=== PATIENT | female | born 2000 | race Caucasian/White ===

== ENCOUNTER 2022-07-16 14:18 | Outpatient (RCR) | payer OTHER, MEDICAID, SELFPAY ==
[2022-07-16] MEDS: RHO(D) IMMUNE GLOBULIN 300 MCG/2 ML SYRINGE IM (14:37)
== END 2022-10-14 23:59 | disposition home or self-care (01) ==
LOC: ANHLAB 14:18
PROVIDERS: PCP Family Medicine Adolescent Medicine; Visit Provider Obstetrics & Gynecology
DX: Z29.13 Encounter for prophylactic Rho(D) immune globulin (principal); O36.0190 Maternal care for anti-D [Rh] antibodies, unspecified trimester, not applicable or unspecified; Z3A.00 Weeks of gestation of pregnancy not specified
CPT/HCPCS: 36415; 85461; 86850; 86900; 86901; 90384; 96372; J2790

== ENCOUNTER 2022-08-21 09:07 | Observation (INO) | payer OTHER, MEDICAID, SELFPAY ==
--- NOTE | 2022-08-21 09:07 | OBADM ---
This patient, Selam Wheatley, admitted to the OB room OB Post 115 for observation. Patient/family oriented to hospital policies and general routines including ID bracelet, bed and alarms, visiting hours, pain management, procedures, bathroom and other care routines, personal items, smoking policy, room service/diet, and visiting hours. Patient/Family are encouraged to report perceived risks to care and to ask questions if they do not understand what they are told or what they should do.
[2022-08-21 09:30] VITALS: BMI 30.2
[2022-08-21 09:31] VITALS: BP 119/66; PULSE 92
--- NOTE | 2022-08-21 12:40 | PC.NURSE ---
Addendum entered by Kasey Garcia RN 08/21/22 13:35: Note from 1015, not 1240. Original Note: Called Dr. Zeng with pt status. Pt states that she fell today at work, hitting her belly on the mop bucket. She complains of sharp pain 2 times since admission lasting about 5sec. Reactive tracing with no contractions. Pt denies feeling contractions or cramping. Blood type is O negative. Orders received and documented.
--- NOTE | 2022-08-22 21:26 | PM.OBTRLD ---
OB - Triage/Final Diagnosis Visit Information Comments/Additional reasons for admission: I have assessed the risk for this patient, Selam Wheatley, and determined that she would benefit from observation care. Evaluation Laboratory results: Laboratory Tests 08/21/22 10:13 KB Hemoglobin Negative Final Diagnosis (1) Fall: Code(s): W19.XXXA - Unspecified fall, initial encounter Status: Acute
== END 2022-08-21 12:40 | disposition home or self-care (01) ==
PROVIDERS: Admitting Provider Obstetrics & Gynecology; PCP Family Medicine Adolescent Medicine; Visit Provider Obstetrics & Gynecology
DX: Z04.3 Encounter for examination and observation following other accident (principal); Z3A.32 32 weeks gestation of pregnancy
CPT/HCPCS: 36415; 59025; 85460; G0378; G0379

== ENCOUNTER 2022-09-28 09:46 | Inpatient (IN) | payer OTHER, MEDICAID, SELFPAY ==
[2022-09-28] VITALS (105 sets, daily range): BP systolic 95–137; BP diastolic 47–111; PULSE 64–170; RESP 16–18; TEMP 36.3–36.7; O2SAT 95–100; BMI 32.6
--- NOTE | 2022-09-28 10:31 | LDADM ---
This patient, Selam Wheatley, was admitted to Labor/Delivery/Recovery 104 on 09/28/22 at 09:46. Plans for labor, pain management and were discussed with patient. Patient/family oriented to hospital policies and general routines including ID bracelet, bed and alarms, visiting hours, pain management, procedures, bathroom and other care routines, personal items, smoking policy, room service/diet and guest tray routines, security routines, and visiting hours. Patient/Family are encouraged to report perceived risks to care and to ask questions if they do not understand what they are told or what they should do. See OBIX for further documentation.
[2022-09-28 10:50] LABS: Basophils Percent Auto 0.1 % (0.2-1.2); Eosinophils Absolute Auto 0.1 K/mm3 (0-0.3); Eosinophils Percent Auto 0.9 % (0-4.4); Hemoglobin 12.1 g/dL (12.0-15.0); Immature Granulocyte Absolute 0.03 K/mm3 (0.00-0.031); Immature Granulocyte Percent A 0.3 % (0-0.5); Lymphocytes Absolute Auto 2.35 K/mm3 (0.9-3.2); Lymphocytes Percent Auto 24.2 % (18.3-44.2); Mean Corpuscular HGB Conc 34.6 g/dl (32-36); Mean Corpuscular Hemoglobin 32.2 pg (26-34); Mean Corpuscular Volume 93.1 fl (80-100); Mean Platelet Volume 11.1 fl (7.4-10.4); Monocytes Absolute Auto 0.8 K/mm3 (0.1-0.6); Neutrophils Absolute Auto 6.5 K/mm3 (1.3-6.7); Neutrophils Percent Auto 66.5 % (45.5-73.1); Platelet Count Result 272 k/mm3 (150-375); Red Blood Count 3.76 M/mm3 (4.2-5.4); Red Cell Distribution Width 12.5 % (11.5-14.5); White Blood Count 9.7 K/mm3 (4.5-10.0)
[2022-09-28] MEDS: LACTATED RINGERS 1,000 ML 125 ML IV CONT ×2 (11:05→13:59)
[2022-09-28] MEDS: OXYTOCIN 30 UNITS/NS 500 ML 30 UNITS/500 ML BAG 6 UNITS IV CONT (11:05)
--- NOTE | 2022-09-28 11:33 | PM.IMHP ---
H&P: HPI History of Present Illness Date/Time: 09/28/22 11:33 Chief Complaint: induction of labor Narrative: Selam is a 21yo G1 at 38.2 who has IUGR and was found to have GOLDY of 4 in the office today. All other testing normal, incluiding normal umbilical dopplers today. otherwise uncomplicated. Review of Systems Review of Systems: All systems reviewed & are unremarkable except as noted in HPI and below PMFSH Surgical History Surgical History Hx of tonsillectomy Family History Family History Grandparent Depression Mother Depression Heart disease Hypertension Alcoholism Father Alcoholism Sibling Alcoholism Social History Social History Smoking status: Current every day smoker Tobacco type: e-cigarettes/vaping Second hand tobacco smoke exposure: No Alcohol intake: current Alcohol use details: Sometimes on weekends Substance use: never Substance use type: does not use Lack of Transportation: No Lack of Food: Never True Current Housing: I Have Housing Concerned About Future Housing: No Difficulty Paying Gas/Electric Bills: No Difficulty Paying for Meds: No Currently Unemployed: No Education: High School Diploma/GED Difficulty w/ Childcare or Family Care: No Living arrangements: with family Occupation/Education: occupation Gender identity (if verbalized by the patient): Female Sexual Orientation (if Verbalized by the Patient): Straight or Heterosexual Spiritual care concerns: No Agree to blood products: Yes Meds Home Medications and Allergies Home Medications Medication Instructions Recorded Confirmed Type prenat.vits,jessica,[id number] 1 tablet PO HS 09/19/22 09/19/22 History Allergies Allergy/AdvReac Type Severity Reaction Status Date / Time gluten Allergy Severe Vomitting/d Verified 09/28/22 10:37 iahrrea Vital Signs Vital Signs - 24 hr 09/28/22 10:18 09/28/22 10:31 09/28/22 10:46 Pulse Rate 90 87 98 Blood Pressure 125/76 116/48 L 134/111 H Oxygen Delivery 09/28/22 11:16 09/28/22 11:31 09/28/22 10:30 Pulse Rate 77 71 Blood Pressure 126/74 131/80 Oxygen Delivery Room Air Exam Const: General: no acute distress Resp: Effort & Inspection: normal respiratory effort Auscultation: clear to auscultation bilaterally Cardio: Rate: regular rate Rhythm: regular rhythm GI: GI Palp: Yes Soft to palpation Extrem: General: normal to inspection H&P: Results Labs Labs: Short CBC 09/28/22 Range/Units 10:08 WBC 9.7 (4.5-10.0) K/mm3 Hgb 12.1 (12.0-15.0) g/dL Hct 35.0 L (37.0-47.0) % Plt Count 272 (150-375) k/mm3 Assessment and Plan Assessment and plan (1) IUGR (intrauterine growth restriction): Status: Acute (2) Oligohydramnios in [place] in third trimester: Code(s): O41.03X0 - Oligohydramnios, third trimester, not applicable or unspecified Status: Acute Plan FHt category 1 GBS neg AROM clear /-2 pitocin per protocol
--- NOTE | 2022-09-28 14:07 | WPDANESEPPF ---
Anes - Initial Pre Proc Eval Procedure: labor epidural Date/Time: 09/28/22 14:07 Surgeon: Kasey Rocha MD Pre Op Diagnosis: labor pain Pre Op Diagnosis: Induction of Labor Patient Data Age: 21 Gender: F Height: 1.57 m Weight: 81 kg Last Vital Signs Temp 36.6 C 09/28/22 11:30 Pulse 70 09/28/22 14:04 BP 106/75 09/28/22 14:04 Pulse Ox 96 09/28/22 14:03 O2 Del Method Room Air 09/28/22 10:30 Allergies Allergy/AdvReac Type Severity Reaction Status Date / Time gluten Allergy Severe Vomitting/d Verified 09/28/22 10:37 iahrrea Home Medications Medication Instructions Recorded Confirmed Type prenat.vits,jessica,[id number] 1 tablet PO HS 09/19/22 09/19/22 History Laboratory Tests 09/28/22 10:08 WBC 9.7 K/mm3 (4.5-10.0) RBC 3.76 L M/mm3 (4.2-5.4) Hgb 12.1 g/dL (12.0-15.0) Hct 35.0 L % (37.0-47.0) MCV 93.1 fl (80-100) MCH 32.2 pg (26-34) MCHC 34.6 g/dl (32-36) RDW 12.5 % (11.5-14.5) Plt Count 272 k/mm3 (150-375) MPV 11.1 H fl (7.4-10.4) Immature Gran % (Auto) 0.3 % (0-0.5) Neut % (Auto) 66.5 % (45.5-73.1) Lymph % (Auto) 24.2 % (18.3-44.2) [place] % (Auto) 8.0 % (2.6-8.5) Eos % (Auto) 0.9 % (0-4.4) Baso % (Auto) 0.1 L % (0.2-1.2) Lymph # (Auto) 2.35 K/mm3 (0.9-3.2) [place] # (Auto) 0.8 H K/mm3 (0.1-0.6) Eos # (Auto) 0.1 K/mm3 (0-0.3) Baso # (Auto) 0.0 K/mm3 (0.0-0.1) Abs Immat Gran (auto) 0.03 K/mm3 (0.00-0.031) Absolute Neuts (auto) 6.5 K/mm3 (1.3-6.7) Absolute Nucleated RBC 0.0 K/mm3 (0.0-0.012) Nucleated RBC % 0.0 % (0.0-0.2) RPR Pending Blood Type O Negative Antibody Screen Positive Antibody Identification Passive Due to RH Imm Glob Antigen Identification Cancelled DEJON, IgG Interpret Not Performed DEJON, Poly Interpret Negative DEJON, Complement Interp Not Performed Patient hx anesthesia problems: none Family hx anesthesia problems: none Results Review: All pre-operative results and documents have been reviewed as part of the pre-operative evaluation. [facility] Surgical History Surgical History Hx of tonsillectomy Family History Family History Grandparent Depression Mother Depression Heart disease Hypertension Alcoholism Father Alcoholism Sibling Alcoholism Social History Social History Smoking status: Current every day smoker Tobacco type: e-cigarettes/vaping Second hand tobacco smoke exposure: No Alcohol intake: current Alcohol use details: Sometimes on weekends Substance use: never Substance use type: does not use Lack of Transportation: No Lack of Food: Never True Current Housing: I Have Housing Concerned About Future Housing: No Difficulty Paying Gas/Electric Bills: No Difficulty Paying for Meds: No Currently Unemployed: No Education: High School Diploma/GED Difficulty w/ Childcare or Family Care: No Living arrangements: with family Occupation/Education: occupation Gender identity (if verbalized by the patient): Female Sexual Orientation (if Verbalized by the Patient): Straight or Heterosexual Spiritual care concerns: No Agree to blood products: Yes Anes - Eval Final PreProcedure Day of Procedure 09/28/22 14:07 Patient weight: obese ASA classification: II Anesthetic plan: proceed Anesthesia type and monitoring: regional epidural and standard monitoring Results Review: All pre-operative results and documents have been reviewed as part of the pre-operative evaluation. Informed Consent: The patient's anesthetic plan and its attendant risks and benefits were discussed with the patient/family/POA. Questions were solicited and answers provided to the
--- NOTE | 2022-09-28 19:25 | PM.OBPRVD ---
OB - Delivery Note Procedure Delivery date: 09/28/22 Procedure: Events: Intrauterine Growth Restriction (IUGR) and Oligohydramnios Induction method: AROM and Per Pitocin Protocol Delivery monitor: External FHT and Internal Uterine Route of delivery: Laceration Description: Perineal - 2nd Degree Delivery repair: vicryl Specimen: Yes Quantitative Blood Loss (ml): 320 Anesthesia type: Epidural Disposition: Floor Narrative: With adequate expulsive efforts by the mother, the baby's head was delivered OA. The baby's anterior shoulder was delivered under the pubic symphysis without difficulty. The posterior shoulder and the rest of the baby delivered without difficulty. The infant was placed on the mothers chest and suctioned and stimulated. The cord was clamped and cut after 30 seconds. Mother and baby both stable. Baby Date of : 09/28/22 Time of : 19:01 Weeks of gestation at delivery: 38 gender: Female Weight (pounds): 5 Weight (ounces): 12 presentation: vertex Placenta delivery description: Spontaneous Cord Vessel Description: 3 Vessels and Delayed Cord Clamping score one minute: 9 score five minutes: 9
[2022-09-28] MEDS: OXYTOCIN 30 UNITS/NS 500 ML 30 UNITS/500 ML BAG 125 UNITS IV CONT (19:37)
[2022-09-28] MEDS: IBUPROFEN 600 MG TABLET PO (20:10)
[2022-09-28] MEDS: WITCH HAZEL 40 PADS 1 PAD TOPICAL (20:11)
[2022-09-28] MEDS: BENZOCAINE 20% AER SPR (*SP) 56 GM CAN 1 SPRAY TOPICAL (20:11)
--- NOTE | 2022-09-28 22:02 | OBPPTRN ---
Patient transferred to post room #286 via W/C. Support person present. Oriented to unit, room, information board, rooming in, admission packet and security measures. Patient verbalizes understanding.
[2022-09-29] MEDS: IBUPROFEN 600 MG TABLET PO ×3 (02:42→23:50)
[2022-09-29 04:20] VITALS: BP 119/86; PULSE 76; RESP 16; TEMP 36.7
[2022-09-29] MEDS: ACETAMINOPHEN 325 MG TABLET 650 MG PO ×2 (04:32→14:57)
[2022-09-29 05:12] LABS: Hematocrit 34.2 % (37.0-47.0); Hemoglobin 11.5 g/dL (12.0-15.0)
[2022-09-29 07:03] VITALS: BP 119/74; PULSE 73; RESP 14; TEMP 36.1; O2SAT 99
[2022-09-29] MEDS: MULTIVIT/MIN/PREN/FOL AC/IRON TABLET 1 TAB PO (09:58)
--- NOTE | 2022-09-29 11:13 | WPDANLDPN2 ---
Anes-Prog Note L&D Date/Time: 09/29/22 11:13 Comfortable throughout: labor and delivery Neuraxial method: epidural Epidural/Spinal procedure site: clean & non-tender Neuro status: Neuro function grossly intact. Cardiovascular status: normal Respiratory status: normal Airway patency: baseline Mental status: baseline Post-Op hydration status: normal Vital Signs: Last Vital Signs Temp 36.1 C L 09/29/22 07:03 Pulse 73 09/29/22 07:03 Resp 14 09/29/22 07:03 BP 119/74 09/29/22 07:03 Pulse Ox 99 09/29/22 07:03 O2 Del Method Room Air 09/28/22 22:20 Pain score (VAS): 3 I/O: Intake & Output 09/28/22 09/29/22 09/29/22 23:59 07:59 15:59 Output Total 338 300 Balance -338 -300 Post-procedural complaints: none Patient feedback: Patient satisfied with anesthetic care.
[2022-09-29 11:40] VITALS: BP 108/61; PULSE 82; RESP 18; TEMP 36.4
[2022-09-29] MEDS: RHO(D) IMMUNE GLOBULIN 300 MCG/2 ML SYRINGE IM (11:43)
--- NOTE | 2022-09-29 16:07 | PM.GYNPNOP ---
CONCRETE BUILDINGS ASSEMBLER - A/P Time Spent With Patient Time: Total time spent is greater than 50% in coordination of care (as documented) at patient's floor/unit and/or counseling patient: Time with patient: less than 15 minutes CONCRETE BUILDINGS ASSEMBLER- PN:Brian Post-Op Subjective Date/time seen: 09/29/22 16:07 Exam Const: General: comfortable, no acute distress and alert Resp: Effort & Inspection: normal respiratory effort Auscultation: no crackles, no rales and no rhonchi Cardio: Rate: regular rate Heart sounds: no click, no murmurs and no rubs GI: Inspection: non-distended GI Palp: No Tenderness to palpation present (GI) Auscultation: normal bowel sounds Other: Incision - CDI Extrem: General: normal to inspection, no pedal edema and no calf tenderness CONCRETE BUILDINGS ASSEMBLER - PN: Obj Data Vital Signs Vital Signs: Vital Signs - 24 hr 09/28/22 16:11 09/28/22 16:16 09/28/22 16:21 Temperature Pulse Rate 68 Respiratory Rate Blood Pressure 111/74 Pulse Oximetry 98 97 98 Oxygen Delivery 09/28/22 16:26 09/28/22 16:31 09/28/22 16:36 Temperature Pulse Rate 76 Respiratory Rate Blood Pressure 115/76 Pulse Oximetry 97 98 98 Oxygen Delivery 09/28/22 16:41 09/28/22 16:23 09/28/22 16:46 Temperature 97.3 F L Pulse Rate 71 Respiratory Rate Blood Pressure 118/75 Pulse Oximetry 98 99 Oxygen Delivery 09/28/22 16:51 09/28/22 16:56 09/28/22 17:01 Temperature Pulse Rate 72 Respiratory Rate Blood Pressure 125/76 Pulse Oximetry 98 99 98 Oxygen Delivery 09/28/22 17:06 09/28/22 17:11 09/28/22 17:16 Temperature Pulse Rate 76 Respiratory Rate Blood Pressure 112/71 Pulse Oximetry 98 97 98 Oxygen Delivery 09/28/22 17:21 09/28/22 17:26 09/28/22 17:31 Temperature Pulse Rate Respiratory Rate Blood Pressure Pulse Oximetry 98 98 99 Oxygen Delivery 09/28/22 17:36 09/28/22 17:41 09/28/22 17:46 Temperature Pulse Rate 74 Respiratory Rate Blood Pressure 113/70 Pulse Oximetry 99 100 98 Oxygen Delivery 09/28/22 17:51 09/28/22 17:56 09/28/22 18:01 Temperature Pulse Rate 76 Respiratory Rate Blood Pressure 99/63 L Pulse Oximetry 99 99 99 Oxygen Delivery 09/28/22 18:06 09/28/22 18:11 09/28/22 18:16 Temperature Pulse Rate 74 Respiratory Rate Blood Pressure 107/62 Pulse Oximetry 100 99 99 Oxygen Delivery 09/28/22 18:21 09/28/22 18:26 09/28/22 18:31 Temperature Pulse Rate 74 Respiratory Rate Blood Pressure 104/64 Pulse Oximetry 98 98 98 Oxygen Delivery 09/28/22 18:36 09/28/22 18:41 09/28/22 18:46 Temperature Pulse Rate Respiratory Rate Blood Pressure Pulse Oximetry 98 99 99 Oxygen Delivery 09/28/22 18:51 09/28/22 18:56 09/28/22 19:01 Temperature Pulse Rate 170 H Respiratory Rate Blood Pressure 123/90 Pulse Oximetry 100 100 100 Oxygen Delivery 09/28/22 18:00 09/28/22 19:20 09/28/22 22:20 Temperature 97.7 F 97.6 F Pulse Rate Respiratory Rate 16 Blood Pressure Pulse Oximetry Oxygen Delivery Room Air 09/28/22 22:20 09/29/22 04:20 09/29/22 07:03 Temperature 98.1 F 98.1 F 97.0 F L Pulse Rate 67 76 73 Respiratory Rate 18 16 14 Blood Pressure 114/75 119/86 119/74 Pulse Oximetry 99 Oxygen Delivery 09/29/22 11:40 Temperature 97.6 F Pulse Rate 82 Respiratory Rate 18 Blood Pressure 108/61 Pulse Oximetry Oxygen Delivery Intake/Output Intake/Output: Intake & Output 09/26/22 09/27/22 09/28/22 09/29/22 23:59 23:59 23:59 23:59 Intake Total 1000 Output Total 338 300 Balance 662 -300 Meds/Results Medications: Active Medications Generic Name Dose Route Start Last Admin Trade Name Jillian PRN Reason Stop Dose Admin Acetaminophen 650 mg 09/28/22 19:29 09/29/22 14:57 Acetaminophen 325 Mg Tablet PO 650 mg Q6H PRN Administration Mild Pain (1-3) or Headache Benzocaine 1 spray 09/02
[2022-09-29 20:34] VITALS: BP 115/76; PULSE 82; RESP 18; TEMP 36.4
--- NOTE | 2022-09-30 09:00 | PM.OBPNVD ---
OB - PN: Subj Subjective Date/time seen: 09/30/22 09:00 doing well, baby feeding well, no complaints OB - PN: Obj Data Labs 09/29/22 04:25 Labs: Laboratory Results - last 24 hr 09/29/22 04:25 Blood Type O Negative Antibody Screen Positive Antibody Identification TNP Antigen Identification TNP DEJON, IgG Interpret Not Performed DEJON, Poly Interpret Negative DEJON, Complement Interp Not Performed Screen Negative Baby's Blood Type B pos Baby's DEJON Positive Doses of RhIg Required 1 OB - PN A/P Plan day: 2 Plan: routine care and discharge home Time Spent With Patient Time: Total time spent is greater than 50% in coordination of care (as documented) at patient's floor/unit and/or counseling patient: Review of Systems Review of Systems: All systems reviewed & are unremarkable except as noted in HPI and below Exam Const: General: cooperative and healthy appearing Chest: Chest palpation & inspection: normal inspection of the chest Resp: Effort & Inspection: normal respiratory effort and able to speak in complete sentences GI: Inspection: normal to inspection Skin: General skin exam: normal color Extrem: General: normal to inspection Psych: Appearance: grossly normal
--- NOTE | 2022-09-30 09:03 | PM.OBDSVD ---
DS: Admitting Diagnosis Discharge Date 09/30/22 Admitting Diagnosis IUGR, IOL DS: Discharge Diagnosis Discharge Diagnosis (1) Vaginal delivery: Code(s): O80 - Encounter for full-term uncomplicated delivery Status: Acute OB - DS: Summary OB Procedures : None OB Procedures Intrapartum: Spontaneous Vag Delivery OB Procedures: : None Time Spent with Patient Time attestation: Total time spent providing and/or coordinating discharge services: DS: Data Data Completed and Pending Pending studies at discharge: Pending at discharge 09/28/22 19:49 Surgical [PTH] Routine Labs on day of discharge: Labs from last 24 hours 09/29/22 04:25 Blood Type O Negative Antibody Screen Positive Antibody Identification TNP Antigen Identification TNP DEJON, IgG Interpret Not Performed DEJON, Poly Interpret Negative DEJON, Complement Interp Not Performed Screen Negative Baby's Blood Type B pos Baby's DEJON Positive Doses of RhIg Required 1 Discharge Plan Discharge Attending physician on discharge: Zachary Apple Discharging Clinician: Luz Valadez Patient Disposition: Home, Self-Care Activity: pelvic rest Diet: regular Patient Instructions: Antibiotic Form, How to Stop Smoking (DC) Stand Alone Forms: General Discharge Information Follow-up/Referrals: Kasey Rocha MD [Physician] - 4 Weeks Discharge Medications: New ibuprofen 600 mg Tablet 600 mg PO Q6H PRN (Reason: Cramping) Qty: 30 0RF Continued #2 Tablet 1 tablet PO HS Date of admission: 09/28/22 09:46 Primary Care Provider: Tex Crain Admitting Provider: Kasey Rocha Attending physician on admission: Kasey Rocha Condition: Stable
[2022-09-30 09:15] VITALS: BP 112/78; PULSE 88; RESP 16; TEMP 36.5
[2022-09-30] MEDS: MULTIVIT/MIN/PREN/FOL AC/IRON TABLET 1 TAB PO (09:23)
[2022-09-30] MEDS: IBUPROFEN 600 MG TABLET PO (09:23)
[2022-10-01 07:29] LABS: Rapid Plasma Reagin Non-Reactive (NonReactive)
[2022-10-02 07:51] VITALS: BP 123/79; PULSE 91; RESP 20; TEMP 36.6; O2SAT 99
== END 2022-09-30 13:30 | disposition home or self-care (01) | DRG 806 ==
LOC: ANHLDR 19:51 → ANHOB2 22:11
PROVIDERS: Admitting Provider Obstetrics & Gynecology; PCP Family Medicine Adolescent Medicine; Visit Provider Obstetrics & Gynecology
DX: O36.5930 Maternal care for other known or suspected poor fetal growth, third trimester, not applicable or unspecified (principal); O41.03X0 Oligohydramnios, third trimester, not applicable or unspecified; Z37.0 Single live birth; O99.334 Smoking (tobacco) complicating childbirth; F17.290 Nicotine dependence, other tobacco product, uncomplicated; O70.1 Second degree perineal laceration during delivery; Z3A.38 38 weeks gestation of pregnancy
CPT/HCPCS: 36415; 85014; 85018; 85025; 85461; 86592; 86850; 86880; 86900; 86901; 86902; 88307; 90384; A9270; J2590; J2790; J2795; J7120

== ENCOUNTER 2023-04-11 13:42 | Outpatient (CLI) | payer OTHER, MEDICAID, SELFPAY ==
--- NOTE | ~2023-04-11 | US_ITS ---
EXAMINATION: US axilla LT HISTORY: Probable lump in the left axilla TECHNIQUE: Targeted ultrasound of the left axilla was performed. FINDINGS: There is an approximately 10 mm x 8 mm hypoechoic mass with posterior acoustic enhancement and possible central fat component in the left axilla corresponding to the palpable abnormality of co ncern. No definite internal vascularity is identified. IMPRESSION: Possible reactive lymph node of the left axilla. Consider trial of antibiotics and repeat ultrasound in four weeks. If finding persists, ultrasound guided biopsy would be recommended. BI-RADS category 4, suspicious findings. Reviewed, dictated and finalized at location A. H TEACHER IMPRESSION: Possible reactive lymph node of the left axilla. Consider trial of antibiotics and repeat ultrasound in four weeks. If finding persists, ultrasound guided bio psy would be recommended. BI-RADS category 4, suspicious findings.
== END 2023-04-11 13:43 | disposition home or self-care (01) ==
PROVIDERS: PCP Family Medicine Adolescent Medicine; Visit Provider Nurse Practitioner
DX: R59.0 Localized enlarged lymph nodes (principal)
CPT/HCPCS: 76882

== ENCOUNTER 2023-06-11 14:42 | Outpatient (CLI) | payer OTHER, MEDICAID, SELFPAY ==
--- NOTE | ~2023-06-11 | US_ITS ---
EXAMINATION: US axilla LT HISTORY: Follow-up for indeterminate left axillary mass TECHNIQUE: Limited ultrasound of the left axilla was performed. FINDINGS: There is a persistent hypoechoic mass in the left axilla which measures approximately 1.7 x 0.8 cm. On cine images, the mass has overall stable appearance to prior ultrasound but has not resol chase. Although finding could reflect a reactive lymph node or possibly lactating adenoma in a breast-f eeding patient, ultrasound-guided biopsy is recommended. IMPRESSION: 1. Indeterminate left breast/axillary mass. Ultrasound-guided biopsy is recommended. BI-RADS category 4, suspicious findings. Reviewed, dictated and finalized at location A. TANK ERECTOR IMPRESSION: 1. Indeterminate left breast/axillary mass. Ultrasound-guided biopsy is recomme nded. BI-RADS category 4, suspicious findings.
== END 2023-06-11 14:43 | disposition home or self-care (01) ==
LOC: ANHIMG 14:45
PROVIDERS: PCP Family Medicine Adolescent Medicine; Visit Provider Nurse Practitioner
DX: O91.23 Nonpurulent mastitis associated with lactation (principal); R92.8 Other abnormal and inconclusive findings on diagnostic imaging of breast
CPT/HCPCS: 76882

== ENCOUNTER 2023-07-04 10:07 | Outpatient (CLI) | payer OTHER, MEDICAID, SELFPAY ==
--- NOTE | ~2023-07-04 | US_ITS ---
EXAMINATION: US_BXSTAXLIMG_US DATE: 07/04/2023 11:23 INDICATION: Left axillary mass. TECHNIQUE: The procedure including the risks, benefits, and alternatives was discussed with the patie nt. Risks discussed included bleeding and infection. The patient understood the risks and agreed to p roceed. The skin overlying the left axilla was prepped and draped in usual sterile fashion. Anesthet ic was administered with 1% lidocaine subcutaneously. An 18 gauge core biopsy needle was then used t o obtain 3 core biopsy specimens under continuous sonographic guidance. Patrick-colored fluid was express ed from the needle incision site. The entry site was cleaned and dressed. There were no immediate co mplications. FINDINGS: Ultrasound images demonstrate the needle in a 2.2 cm hypoechoic subcutaneous mass in left a xilla. IMPRESSION: 1. Ultrasound-guided core needle biopsy of a left axillary mass. Note that during the procedure, patrick- colored fluid was expressed from the needle incision site. Reviewed, dictated and finalized at location A. ORT SERVICES COORDINATOR IMPRESSION: 1. Ultrasound-guided core needle biopsy of a left axillary mass. Note that duri ng the procedure, patrick-colored fluid was expressed from the needle incision site .
== END 2023-07-04 10:08 | disposition home or self-care (01) ==
LOC: ANHIMG 10:08
PROVIDERS: PCP Family Medicine Adolescent Medicine; Visit Provider Surgery
DX: R22.32 Localized swelling, mass and lump, left upper limb (principal)
CPT/HCPCS: 20999; 76942; 88305

== ENCOUNTER 2024-03-06 11:03 | Outpatient (CLI) | payer BC, SELFPAY ==
--- NOTE | ~2024-03-06 | US_ITS ---
US axilla LT 03/06/2024 11:36 Indication: Follow-up palpable left axillary lump. Procedure: High-resolution Limited ultrasound of the left axilla Comparison: Ultrasound dated 06/11/2023 and 04/11/2023 Findings: Normal heterogeneous echotexture is present in the left axilla. No discrete mass identified . Impression: 1: Unremarkable left axillary ultrasound. No discrete mass identified. BI-RADS CATEGORY 1 - NEGATIVE Reviewed, dictated and finalized at location B. Impression: 1: Unremarkable left axillary ultrasound. No discrete mass identified. BI-RADS CATEGORY 1 - NEGATIVE
== END 2024-03-06 11:04 | disposition home or self-care (01) ==
LOC: ANHIMG 11:06
PROVIDERS: PCP Family Medicine Adolescent Medicine; Visit Provider Surgery
DX: Q83.8 Other congenital malformations of breast (principal); R22.32 Localized swelling, mass and lump, left upper limb
CPT/HCPCS: 76882